=== PATIENT | female | born 1980 | race American Indian/Alaskan Native ===

== ENCOUNTER 2019-03-09 10:50 | Emergency (ER) | payer SELFPAY ==
[2019-03-09 10:55] VITALS: BP 194/94
--- NOTE | 2019-03-09 11:04 | Event Note ---
ED Screening Note ED Screening Note: 38 y/o female comes in for left knee pain that is non traumatic. Denies any falls or injuries. Started Wednesday. No oral control an recent travels. No SOB or chest pain. This initial assessment/diagnostic orders/clinical plan/treatment(s) is/are subject to change based on patients health status, clinical progression and re- assessment by fellow clinical providers in the ED. Further treatment and workup at subsequent clinical providers discretion. Patient/guardian urged not to elope from the ED as their condition may be serious if not clinically assessed and managed. Initial orders include:
--- NOTE | 2019-03-09 11:57 | Vascular Lab Report ---
DUPLEX DOPPLER LOWER EXTREMITY VEINS, LEFT INDICATION: left leg pain and swelling.. TECHNIQUE: Duplex doppler imaging was performed through the veins of the left lower extremity using venous compr ession and other maneuvers. COMPARISON: None available. FINDINGS: Common femoral vein: Negative. Superficial femoral vein: Negative. Popliteal vein: Negative. Calf veins: Negative. Additional findings: Left knee effusion. IMPRESSION: 1. Negative for DVT. 2. Left knee effusion. Signer Name: Ramírez Gaspar MD Signed: 03/09/2019 11:52 AM Workstation Name: [id number]
--- NOTE | 2019-03-09 13:46 | Emergency Department Report ---
ED Extremity Problem HPI - General Chief complaint: Extremity Injury, Lower Stated complaint: L KNEE/ANKLE PAIN Time Seen by Provider: 03/09/19 10:59 Source: patient Mode of arrival: Ambulatory Limitations: Physical Limitation - History of Present Illness Initial comments: This is a 38-year-old female who presents to ED complaining of left knee pain and swelling that started Wednesday afternoon. Patient states she did not experience any fall injury or trauma to the knee. Patient states pain is elicited anterior aspect of the knee. Patient denies any shortness activities. Patient states that pain is worsened with a weight parent's. Patient denies any radiation elsewhere. MD Complaint: extremity pain Location: left -: Yes arthralgia Radiation: none Severity scale (0 -10): 5 Quality: aching Worsens with: weight bearing - Related Data Previous Rx's Medication Instructions Recorded Last Taken Type Cyclobenzaprine [Flexeril] 10 mg PO QHS PRN #20 tablet 03/09/19 Unknown Rx Naproxen [Naprosyn] 500 mg PO BID #30 tablet 03/09/19 Unknown Rx Allergies Allergy/AdvReac Type Severity Reaction Status Date / Time No Known Allergies Allergy Unverified 03/09/19 10:51 ED Review of Systems ROS: Stated complaint: L KNEE/ANKLE PAIN Other details as noted in HPI Comment: All other systems reviewed and negative ED Past Medical Hx - Past Medical History Previous Medical History?: No Hx Hypertension: Yes - Surgical History Additional Surgical History: C SECTION - Social History Smoking Status: Never Smoker Substance Use Type: Alcohol - Medications Home Medications: Home Medications Medication Instructions Recorded Confirmed Last Taken Type Cyclobenzaprine [Flexeril] 10 mg PO QHS PRN #20 tablet 03/09/19 Unknown Rx Naproxen [Naprosyn] 500 mg PO BID #30 tablet 03/09/19 Unknown Rx ED Physical Exam - General Limitations: Physical Limitation General appearance: alert, in no apparent distress - Head Head exam: Present: atraumatic, normocephalic - Eye Eye exam: Present: normal appearance - ENT ENT exam: Present: mucous membranes moist - Neck Neck exam: Present: normal inspection - Respiratory Respiratory exam: Present: normal lung sounds bilaterally. Absent: respiratory distress - Cardiovascular Cardiovascular Exam: Present: regular rate, normal rhythm. Absent: systolic murmur, diastolic murmur, rubs, gallop - GI/Abdominal GI/Abdominal exam: Present: soft, normal bowel sounds - Extremities Exam Extremities exam: Present: normal inspection, full ROM, tenderness (anterior aspect of knee left). Absent: pedal edema, joint swelling, calf tenderness - Back Exam Back exam: Present: normal inspection, full ROM. Absent: tenderness, CVA tenderness (R), CVA tenderness (L) - Neurological Exam Neurological exam: Present: alert, oriented X3, CN II-XII intact, normal gait - Psychiatric Psychiatric exam: Present: normal affect, normal mood - Skin Skin exam: Present: warm, dry, intact, normal color. Absent: rash ED Course Vital Signs 03/09/19 10:53 Temperature 98.0 F Pulse Rate 105 H Respiratory 16 Rate Blood Pressure 194/94 O2 Sat by Pulse 100 Oximetry ED Medical Decision Making - Radiology Data Radiology results: report reviewed, image reviewed DUPLEX DOPPLER LOWER EXTREMITY VEINS, LEFT INDICATION: left leg pain and swelling.. TECHNIQUE: Duplex doppler imaging was performed through the veins of the left lower extremity using venous compression and other maneuvers. COMPARISON: None available. FINDINGS: Common femoral vein: Negative. Superficial femoral vein: Negative. Popliteal vein: Negative. Calf veins: Negative. Additional findings: Left knee effusion. IMPRESSION: 1. Negative for DVT. 2. Left knee effusion. Signer Name: Ramírez Gaspar MD Signed: 03/09/2019 11:52 AM Workstation Name: [id number] Transcribed By: JUDIE Dictated By: Ramírez Gaspar MD Electronically Authenticated By: Ramírez Gaspar MD Signed Date/Time: 03/09/19 1152 - Medical Decision Making 38-year-old female presents to ED with myalgiaarthralgia of the left knee ED course: There was no swelling noted upon examination, exam shows mild ten derness to palpation, Homans test negative. Ultrasound Doppler studies was performed. Results above Vital signs are normal patient is in no acute distress Discussed with patient follow-up with primary care physician. Discussed the patient and take medications as prescribed. Patient has no neurological deficit. Patient is alert and oriented 3 and understands all instructions given. Discussed drowsiness effect of Flexeril makes her drowsy and not to operate machinery while taking flexeril Critical care attestation.: If time is entered above; I have spent that time in minutes in the direct care of this critically ill patient, excluding procedure time. ED Disposition Clinical Impression: Left anterior knee pain Disposition: DC-01 TO HOME OR SELFCARE Is pt being admited?: No Does the pt Need Aspirin: No Condition: Stable Instructions: Osteoarthritis (ED), Knee Pain (ED), Arthralgia (ED) Additional Instructions: Make sure to follow up with the primary care physician as discussed. Take all your medications as you've been prescribed. If you have any worsening symptoms or develop new symptoms please return to ED immediately. Prescriptions: Cyclobenzaprine [Flexeril] 10 mg PO QHS PRN #20 tablet PRN Reason: Muscle Spasm Naproxen [Naprosyn] 500 mg PO BID #30 tablet Referrals: PRIMARY CARE, [Primary Care Provider] - 3-5 Days [facility] [Provider Group] - 3-5 Days Forms: Work/School Release Form(ED) Time of Disposition: 13:47
== END 2019-03-09 14:04 | disposition home or self-care (01) ==
LOC: ED 10:50
DX: M25.562 Pain in left knee (principal); R22.42 Localized swelling, mass and lump, left lower limb; I10 Essential (primary) hypertension; Z98.890 Other specified postprocedural states